=== PATIENT | male | born 1990 | race Native Hawaiian/Other Pacific Islander ===

== ENCOUNTER 2019-04-10 23:05 | Inpatient (IN) | payer MEDICAID, OTHER ==
[2019-04-11 01:59] LABS: Appearance,Urine Clear (Clear); Bilirubin,Urine Negative (Negative); Blood,Urine Negative (Negative); Color,Urine Light Yellow; Glucose,Urine (UA) Negative (Negative); Ketones,Urine Negative (Negative); Leukocyte Esterase,Urine Trace (Negative); Nitrite,Urine Negative (Negative); Protein,Urine Negative (Negative); RBC,Urine 1 /hpf (0-5); Specific Gravity,Urine 1.005 (1.001-1.035); Urobilinogen,Urine <2.0 mg/dL (<2.0); WBC,Urine 3 /hpf (0-5)
[2019-04-11 02:10] LABS: Amphetamine Screen,Urine Not Detected (NotDetected); Barbiturate Screen,Urine Not Detected (NotDetected); Benzodiazepines Screen,Urine Not Detected (NotDetected); Cocaine Screen,Urine Not Detected (NotDetected); Methadone Screen, Urine Not Detected (NotDetected); Opiate Screen,Urine Not Detected (NotDetected); Oxycodone Screen, Urine Not Detected (NotDetected); Phencyclidine Screen,Urine Not Detected (NotDetected); Tricyclic Antidepressant,Urine Not Detected (NotDetected); Urn Cannabinoid Scrn Detected (NotDetected)
--- NOTE | 2019-04-11 02:53 | ED ---
Psych HPI - General Chief Complaint: Psychiatric Symptoms Stated Complaint: Suicidal Ideation Time Seen by Provider: 04/10/19 23:15 Source: patient, police Mode of arrival: ambulatory - History of Present Illness Initial Comments: The patient is a 20-year-old male with past history of depression who presents to the emergency room with reported suicidal ideations. The patient does not provide much history. He is very reluctant to talk. The report from police and EMS is that the patient called his mother stating that he wanted to . He was at locating his belongings to his children. Mother got concerned and called EMS. Patient denies all of this to me. He states that he told his mother "bye" because he did not want to see her anymore. Patient will not elaborate further on this. He states that he was not saying it because he suicidal. Denies homicidal ideations. No hallucinations. Does admit to history of depression in the past. Has been previously hospitalized for mental health. Also reports that he seen a psychiatrist, last of which was 4 months ago. He is not currently on any medications. Patient reports to drinking a small amount of alcohol tonight. He also admits that he takes prescription pain medications that are not prescribed to him. Denies attempting anything to harm himself tonight. Denies any additional symptoms to include headaches, fevers, chills, nausea or vomiting. There are no other alleviating, precipitating or modifying factors - Related Data Previous Rx's Medication Instructions Recorded DULoxetine HCL [Cymbalta] 60 mg PO DAILY #30 capsule. 04/14/19 Allergies Allergy/AdvReac Type Severity Reaction Status Date / Time ibuprofen AdvReac Nausea & Verified 04/10/19 23:22 Vomiting Review of Systems ROS Statement: Those systems with pertinent positive or pertinent negative responses have been documented in the HPI. ROS Other: All systems not noted in ROS Statement are negative. Past Medical History Additional Past Medical History / Comment(s): back pain History of Any Multi-Drug Resistant Organisms: None Reported Past Surgical History: Hernia Repair, Orthopedic Surgery Past Psychological History: Depression Smoking Status: Current every day smoker Past Alcohol Use History: Occasional Past Drug Use History: Prescription Drug Abuse General Exam Limitations: no limitations General appearance: alert, in no apparent distress Head exam: Present: atraumatic, normocephalic, normal inspection Eye exam: Present: normal appearance, PERRL, EOMI. Absent: scleral icterus, conjunctival injection, periorbital swelling ENT exam: Present: normal exam, mucous membranes moist Neck exam: Present: normal inspection. Absent: tenderness, meningismus, lymphadenopathy Respiratory exam: Present: normal lung sounds bilaterally. Absent: respiratory distress, wheezes, rales, rhonchi, stridor Cardiovascular Exam: Present: regular rate, normal rhythm, normal heart sounds. Absent: systolic murmur, diastolic murmur, rubs, gallop, clicks GI/Abdominal exam: Present: soft, normal bowel sounds. Absent: distended, tenderness, guarding, rebound, rigid Extremities exam: Present: normal inspection, full ROM, normal capillary refill. Absent: tenderness, pedal edema, joint swelling, calf tenderness Back exam: Present: normal inspection Neurological exam: Present: alert, oriented X3, CN II-XII intact Psychiatric exam: Present: normal affect, depressed Skin exam: Present: warm, dry, intact, normal color. Absent: rash Course Vital Signs 04/10/19 04/11/19 23:12 04:26 Temperature 98.5 F 98.3 F Pulse Rate 94 53 L Respiratory 18 14 Rate Blood Pressure 149/90 98/52 O2 Sat by Pulse 97 94 L Oximetry Medical Decision Making - Medical Decision Making Upon arrival the patient was placed in room 13. A thorough and physical exam was performed. The patient is petitioned by police. He is currently intoxicated with a BAT of 0.91. He does sober up for an hour. He is on evaluated by the EPS. I'm currently awaiting the recommendations - Lab Data Result diagrams: 04/11/19 08:38 04/11/19 08:38 Lab Results 04/11/19 Range/Units 01:30 Urine Color Light Yellow Urine Appearance Clear (Clear) Urine pH 6.0 (5.0-8.0) Ur Specific [place] 1.005 (1.001-1.035) Urine Protein Negative (Negative) Urine Glucose (UA) Negative (Negative) Urine Ketones Negative (Negative) Urine Blood Negative (Negative) Urine Nitrite Negative (Negative) Urine Bilirubin Negative (Negative) Urine Urobilinogen <2.0 (<2.0) mg/dL Ur Leukocyte Esterase Trace H (Negative) Urine RBC 1 (0-5) /hpf Urine WBC 3 (0-5) /hpf Urine Opiates Screen Not Detected (NotDetected) Ur Oxycodone Screen Not Detected (NotDetected) Urine Methadone Screen Not Detected (NotDetected) Ur Propoxyphene Screen Not Detected (NotDetected) Ur Barbiturates Screen Not Detected (NotDetected) U Tricyclic Antidepress Not Detected (NotDetected) Ur Phencyclidine Scrn Not Detected (NotDetected) Ur Amphetamines Screen Not Detected (NotDetected) U Methamphetamines Scrn Not Detected (NotDetected) U Benzodiazepines Scrn Not Detected (NotDetected) Urine Cocaine Screen Not Detected (NotDetected) U Marijuana (THC) Screen Detected H (NotDetected) Disposition Clinical Impression: Depression Disposition: ADMITTED IP TO THIS [facility] Condition: Stable Is patient prescribed a controlled substance at d/c from ED?: No Decision to Admit Reason: Admit from EC
[2019-04-11] MEDS ORDERED: LORazepam 1 MG TAB PO PRN (04:22)
[2019-04-11] MEDS ORDERED: MAGNESIUM HYDROXIDE 2,400 MG/10 ML CUP PO PRN (04:22)
[2019-04-11] MEDS ORDERED: ZIPRASIDONE 20 MG VIAL IM PRN (04:22)
[2019-04-11] MEDS ORDERED: MAG HYDROX/AL HYDROX/SIMETH 30 ML CUP PO PRN (04:22)
[2019-04-11 09:40] LABS: Basophils # (A) 0.1 k/uL (0-0.2); Basophils % (A) 1 %; Eosinophils # (A) 0.2 k/uL (0-0.7); Eosinophils % (A) 3 %; HCT 43.5 % (39.0-53.0); HGB 14.8 gm/dL (13.0-17.5); Lymphocytes # (A) 2.2 k/uL (1.0-4.8); Lymphocytes % (A) 32 %; MCH 31.2 pg (25.0-35.0); MCV 91.8 fL (80.0-100.0); Monocytes # (A) 0.4 k/uL (0-1.0); Monocytes % (A) 5 %; Neutrophils # (A) 3.9 k/uL (1.3-7.7); Neutrophils % (A) 57 %; Platelet Count 256 k/uL (150-450); RBC 4.74 m/uL (4.30-5.90); WBC 6.8 k/uL (3.8-10.6)
[2019-04-11 09:53] LABS: ALT 16 U/L (4-49); AST 35 U/L (17-59); African American GFR (CKD) >90 (>60 ml/min/1.73 sqM); Albumin 4.3 g/dL (3.5-5.0); Alkaline Phosphatase 63 U/L (38-126); Anion Gap 9 mmol/L; Bilirubin, Delta 0.2 mg/dL (0.0-0.2); Bilirubin,Unconjugated 1.1 mg/dL (0.0-1.1); Blood Urea Nitrogen 11 mg/dL (9-20); Calcium 9.4 mg/dL (8.4-10.2); Carbon Dioxide 24 mmol/L (22-30); Chloride 106 mmol/L (98-107); Cholesterol 143 mg/dL (<200); Glucose 72 mg/dL (74-99); HDL Cholesterol 41 mg/dL (40-60); LDL Cholesterol,Calculated 87 mg/dL (0-99); Non-African American GFR(CKD) >90 (>60 ml/min/1.73 sqM); Potassium 4.2 mmol/L (3.5-5.1); Sodium 139 mmol/L (137-145); Total Bilirubin 1.3 mg/dL (0.2-1.3); Total Protein 7.1 g/dL (6.3-8.2); Triglycerides 76 mg/dL (<150)
[2019-04-11] MEDS ORDERED: ONDANSETRON 4 MG TAB PO PRN (10:44)
[2019-04-11] MEDS ORDERED: LOPERAMIDE 2 MG CAP PO PRN (10:44)
--- NOTE | 2019-04-11 10:57 | P.HP ---
Psychiatric H&P - . History & Physical: Allergies Allergy/AdvReac Type Severity Reaction Status Date / Time ibuprofen AdvReac Nausea & Verified 04/10/19 23:22 Vomiting Vital Signs Temp 97.7 F 04/11/19 05:07 Pulse 85 04/11/19 05:07 Resp 18 04/11/19 05:07 BP 132/65 04/11/19 05:07 Pulse Ox 96 04/11/19 05:07 Intake & Output 04/10/19 04/11/19 04/11/19 18:59 06:59 18:59 Weight 68.039 kg Laboratory Last Values WBC 6.8 k/uL (3.8-10.6) 04/11/19 08:38 RBC 4.74 m/uL (4.30-5.90) 04/11/19 08:38 Hgb 14.8 gm/dL (13.0-17.5) 04/11/19 08:38 Hct 43.5 % (39.0-53.0) 04/11/19 08:38 MCV 91.8 fL (80.0-100.0) 04/11/19 08:38 MCH 31.2 pg (25.0-35.0) 04/11/19 08:38 MCHC 34.0 g/dL (31.0-37.0) 04/11/19 08:38 RDW 13.0 % (11.5-15.5) 04/11/19 08:38 Plt Count 256 k/uL (150-450) 04/11/19 08:38 Neutrophils % 57 % 04/11/19 08:38 Lymphocytes % 32 % 04/11/19 08:38 Monocytes % 5 % 04/11/19 08:38 Eosinophils % 3 % 04/11/19 08:38 Basophils % 1 % 04/11/19 08:38 Neutrophils # 3.9 k/uL (1.3-7.7) 04/11/19 08:38 Lymphocytes # 2.2 k/uL (1.0-4.8) 04/11/19 08:38 Monocytes # 0.4 k/uL (0-1.0) 04/11/19 08:38 Eosinophils # 0.2 k/uL (0-0.7) 04/11/19 08:38 Basophils # 0.1 k/uL (0-0.2) 04/11/19 08:38 Sodium 139 mmol/L (137-145) 04/11/19 08:38 Potassium 4.2 mmol/L (3.5-5.1) 04/11/19 08:38 Chloride 106 mmol/L (98-107) 04/11/19 08:38 Carbon Dioxide 24 mmol/L (22-30) 04/11/19 08:38 Anion Gap 9 mmol/L 04/11/19 08:38 BUN 11 mg/dL (9-20) 04/11/19 08:38 Creatinine 0.72 mg/dL (0.66-1.25) 04/11/19 08:38 Est GFR (CKD-EPI)AfAm >90 (>60 ml/min/1.73 sqM) 04/11/19 08:38 Est GFR (CKD-EPI)NonAf >90 (>60 ml/min/1.73 sqM) 04/11/19 08:38 Glucose 72 mg/dL (74-99) L 04/11/19 08:38 Calcium 9.4 mg/dL (8.4-10.2) 04/11/19 08:38 Total Bilirubin 1.3 mg/dL (0.2-1.3) 04/11/19 08:38 Conjugated Bilirubin 0.0 mg/dL (0.0-0.3) 04/11/19 08:38 Unconjugated Bilirubin 1.1 mg/dL (0.0-1.1) 04/11/19 08:38 Delta Bilirubin 0.2 mg/dL (0.0-0.2) 04/11/19 08:38 AST 35 U/L (17-59) 04/11/19 08:38 ALT 16 U/L (4-49) 04/11/19 08:38 Alkaline Phosphatase 63 U/L (38-126) 04/11/19 08:38 Total Protein 7.1 g/dL (6.3-8.2) 04/11/19 08:38 Albumin 4.3 g/dL (3.5-5.0) 04/11/19 08:38 Triglycerides 76 mg/dL (<150) 04/11/19 08:38 Cholesterol 143 mg/dL (<200) 04/11/19 08:38 LDL Cholesterol, Calc 87 mg/dL (0-99) 04/11/19 08:38 HDL Cholesterol 41 mg/dL (40-60) 04/11/19 08:38 TSH 1.200 mIU/L (0.465-4.680) 04/11/19 08:38 Urine Color Light Yellow 04/11/19 01:30 Urine Appearance Clear (Clear) 04/11/19 01:30 Urine pH 6.0 (5.0-8.0) 04/11/19 01:30 Ur Specific [place] 1.005 (1.001-1.035) 04/11/19 01:30 Urine Protein Negative (Negative) 04/11/19 01:30 Urine Glucose (UA) Negative (Negative) 04/11/19 01:30 Urine Ketones Negative (Negative) 04/11/19 01:30 Urine Blood Negative (Negative) 04/11/19 01:30 Urine Nitrite Negative (Negative) 04/11/19 01:30 Urine Bilirubin Negative (Negative) 04/11/19 01:30 Urine Urobilinogen <2.0 mg/dL (<2.0) 04/11/19 01:30 Ur Leukocyte Esterase Trace (Negative) H 04/11/19 01:30 Urine RBC 1 /hpf (0-5) 04/11/19 01:30 Urine WBC 3 /hpf (0-5) 04/11/19 01:30 Urine Opiates Screen Not Detected (NotDetected) 04/11/19 01:30 Ur Oxycodone Screen Not Detected (NotDetected) 04/11/19 01:30 Urine Methadone Screen Not Detected (NotDetected) 04/11/19 01:30 Ur Propoxyphene Screen Not Detected (NotDetected) 04/11/19 01:30 Ur Barbiturates Screen Not Detected (NotDetected) 04/11/19 01:30 U Tricyclic Antidepress Not Detected (NotDetected) 04/11/19 01:30 Ur Phencyclidine Scrn Not Detected (NotDetected) 04/11/19 01:30 Ur Amphetamines Screen Not Detected (NotDetected) 04/11/19 01:30 U Methamphetamines Scrn Not Detected (NotDetected) 04/11/19 01:30 U Benzodiazepines Scrn Not Detected (NotDetected) 04/11/19 01:30 Urine Cocaine Screen Not Detected (NotDetected) 04/11/19 01:30 U Marijuana (THC) Screen Detected (NotDetected) H 04/11/19 01:30 04/11/19 10:45 IDENTIFYING DATA: This patient is a 28-year-old single male who was admitted to the mental health unit through the emergency room due to suicidal ideation. HPI: The patient presents with a petition completed by his mother indicating that he had been sending text messages stating "goodbye" alluding to suicidal ideation. It further states that he had sent similar messages to his girlfriend and similar postings on Facebook. The patient states that he did feel overwhelmed and hopeless at the time. He indicates that his girlfriend has just told them that they are breaking up. He has been overwhelmed financially and they just had to relocate their home. He has a total of 4 children and in the recent past the 2 oldest children were placed back with their mother where as before he was providing care for them 7 days a week. He describes being impacted by chronic pain of his lower neck. He reports that his sleep has been impaired appetite is been decreased energy level fluctuating he states his mind is scattered his concentration is poor. Here in the hospital he reports no suicidal ideation but he was experiencing those just prior to this admission no homicidal ideation reported. He endorses no auditory or visual hallucinations or any specific delusions. He states he was diagnosed with bipolar disorder at age 15 but he endorses no history of hypomanic or manic episodes. He indicates that he can get angry often but he feels that there is been appropriate precipitant. He denies having any firearms at home. PAST PSYCHIATRIC HISTORY: He indicates he has had 7 prior admissions to psychiatric units the last was in 2006 he initially stated he had no suicide attempts but several years ago he did overdose with Xanax while using alcohol. No other self-injurious behavior. He currently does not attend outpatient mental healthcare. He has gone to [facility] in the past. In the past he has been placed on Ritalin Concerta Prozac Risperdal Abilify Wellbutrin and Seroquel Depakote Celexa. Many of these medications were given to him as a child. He has been off his psychotropic medications for 10 years. PMH: Chronic pain involving his neck he reports pain in his elbow related to a more recent injury. ALLERGIES: Ibuprofen MEDICATIONS: None prescribed CHEMICAL DEPENDENCY HISTORY: The patient reports he has a history of using alcohol heavily 10 years ago he would drink 1/2 gallon per day he reports over the last several years he has not been engaged in alcohol use although 2 days ago he relapsed and drank a pint, he indicates he uses marijuana on a daily basis, he has been getting pain medications off the street most commonly Suboxone sometimes OxyContin. He denies any use of other illicit drugs or other prescription drugs but asks that Adderall be prescribed today. He has never been placed in residential treatment for chemical dependency reasons. FAMILY PSYCHIATRIC HISTORY: None reported, no suicides in the family FAMILY CHEMICAL DEPENDENCY HISTORY: Suspects his dad overused alcohol SOCIAL HISTORY: The patient is 20 years old she single he has 4 children ages 2 months, 1-year-old, 5 years old, 9 years old. The oldest 2 children live with their mother the youngest 2 are with him and his girlfriend up until this most recent breakup. The patient is unemployed he is on disability for "bipolar disorder". He went as far as 10th grade in school and later earned a GED no history of service, he has 1 brother 1 sister. He has been with his girlfriend for 3 years and indicates that the relationship has been up and down. He is originally from the [facility]. His father was killed in a motorcycle accident when the patient was 6 months old he was raised by his mother and a grandmother. Legal history includes 5 domestic violence charges and assault charge he states his longest incarceration was for months and was a felony. He reports no abuse history. MENTAL STATUS EXAM: The patient is a 28-year-old male appearing his stated age he is dressed in hospital attire he is wearing a blanket over top. Eye contact is intermittent. Soon after discussing his presenting symptoms he becomes tearful. He endorses a sad mood he admits that he felt hopeless and had suicidal thoughts at the time he sent those messages. Today he states he feels "fine" and indicates he would like to be discharged. He reports no suicidal ideation intent or plan today he reports no homicidal ideation intent or plan. During conversation he is blunts he is mildly agitated at times but is redirectable. He endorses no auditory or visual hallucinations or any specific delusions. There is no observed evidence of psychosis. He demonstrates no tangential thinking loose associations or flight of ideas. He does seem mildly hyperactive in general. He is demanding at times but again is redirectable. He left the session wants to go vomit due to presumed opiate withdrawal and then he returned on his own accord. Insight and judgment are limited. He demonstrated no aggressiveness he demonstrates no involuntary repetitive movements. He is oriented to person place and date he is able to name the days of the week backwards. STRENGTHS/WEAKNESSES: Strengths: Disability income, housing weaknesses: Untreated mental illness symptoms, substance use, recent breakup with girlfriend INTELLECTUAL FUNCTIONING: Below average to average IMPRESSIONS: [] 1. Major depressive disorder recurrent severe without psychosis, rule out intermittent explosive disorder, rule out bipolar depression, rule out ADHD, alcohol use disorder, rule out opioid use disorder, cannabis use disorder PLAN: He shouldn't was admitted to the mental health unit with a petition and clinical certificate. He indicates he will sign in voluntarily. We reviewed his presenting symptoms and treatment options. Based on this evaluation there is no clear indication he has bipolar disorder. We will proceed with using Cymbalta as an antidepressant that may also address his physical pain complaints. We discussed the potential benefits and side effects of Cymbalta and his questions were answered. He will be seen by internal medicine for routine history and physical exam. Social work will evaluate him to complete a psychosocial assessment. We will begin discharge planning. We will discuss the option of inpatient chemical dependency treatment. He is encouraged to attend groups we will monitor him for safety. We will involve family in treatment and discharge planning as he will allow.
--- NOTE | 2019-04-11 13:12 | P.MDCNMH ---
History of Present Illness Chief Complaint: Suicidal ideation This is a 28-year-old male who is being admitted to mental health unit for suicidal ideation. He's been having some difficult situation home and his depression has worsened and he made some suicidal statements to his mother and his girlfriend. Patient states that he's been diagnosed with bipolar disorder many years ago and been treated with various medications and admissions to [facility] in the past. He denies any medical problems like respiratory illnesses, cardiovascular diseases, diabetes or thyroid disorders. He does not take any medications or regular basis. He states that in the past he was having neck pain and arm pain after injury and would been taking some opiate-based pain medications from the streets. His urine drug screen is negative for opiates. Patient states that in the past he used to be a heavy drinker but for the last few years he has not used any alcohol. He smoked marijuana almost daily. Denies any history of sexually transmitted diseases. He currently denies any shortness of breath, nausea vomiting headache chest pain back pain dysuria. Review of Systems Review of systems performed is negative except mentioned in HPI Past Medical History Past Medical History: No Reported History Additional Past Medical History / Comment(s): back pain History of Any Multi-Drug Resistant Organisms: None Reported Past Surgical History: Hernia Repair, Orthopedic Surgery Past Psychological History: Depression Smoking Status: Current every day smoker Past Alcohol Use History: Occasional Past Drug Use History: Prescription Drug Abuse Medications and Allergies Allergies Allergy/AdvReac Type Severity Reaction Status Date / Time ibuprofen AdvReac Nausea & Verified 04/10/19 23:22 Vomiting Physical Exam Vitals: Vital Signs Temp Pulse Pulse Pulse Resp BP BP 04/11/19 11:52 98.4 F 95 20 04/11/19 05:07 97.7 F 85 18 132/65 04/11/19 04:26 98.3 F 53 L 14 98/52 04/10/19 23:12 98.5 F 94 18 149/90 BP Pulse Ox 04/11/19 11:52 104/69 97 04/11/19 05:07 96 04/11/19 04:26 94 L 04/10/19 23:12 97 Intake and Output 04/10/19 04/11/19 04/11/19 22:59 06:59 14:59 Other: Weight 68.039 kg Vital Signs: I have reviewed the vital signs. GENERAL: Well-nourished, Well-developed , no apparent distress, cooperative Eyes: PERRL, extraoculry movements intact, clear conjunctiva Head: : Atraumatic external nose and ears, oropharyngeal mucosa is moist without lesions or exudates Neck: Symmetric, trachea midline, No thyromegaly, no masses or neck vain pulsation, no neck rigidity CVS: +S1/S2, No murmurs or gallops. Peripheral pulses 2+ and equal in all extremities. RESP: Unlabored respiratory effort. Clear to auscultation bilaterally. Abdomen: Bowel sounds present in all 4 quadrants, Soft to palpation, Nontender/Nondistended, No hepatosplenomegaly, no hernias or masses, no CVA tnderness Musculoskeletal: Extremities w/o deformity, No cyanosis or clubbing, no joint swelling Skin: Warm, Dry. No rashes or lesions Neuro: athletic agent II-XII grossly intact, motor strenght 5/5 i upper and lower extremities, no clonus, patellar DTRs 2+ and sympetrical Psych: Awake, Alert, & Oriented (AAO) x3 Appropriate mood and affect Cranial Nerve Examination - Cranial Nerves Cranial Nerve I- Olfactory: Intact Cranial Nerve II- Optic: Intact Cranial Nerve III- Oculomotor: Intact Cranial Nerve IV- Trochlear: Intact Cranial Nerve V- Trigeminal: Intact Cranial Nerve - Abducens: Intact Cranial Nerve VII- Facial: Intact (Intact) Cranial Nerve VIII- Auditory: Intact Cranial Nerve IX- Glossopharyngeal: Intact Cranial Nerve X- Vagus: Intact Cranial Nerve XI- Accessory: Intact Cranial Nerve XII- Hypoglossal: Intact Results CBC & Chem 7: 04/11/19 08:38 04/11/19 08:38 Labs: Abnormal Lab Results - Last 24 Hours (Table) 04/11/19 04/11/19 Range/Units 01:30 08:38 Glucose 72 L (74-99) mg/dL Ur Leukocyte Esterase Trace H (Negative) U Marijuana (THC) Screen Detected H (NotDetected) Assessment and Plan Assessment: 28-year-old male with history of depression being admitted for worsening of his depression and suicidal ideation. He does not have any active medical problems otherwise. We will check his A1c, TSH and lipid panel along with a CBC and BMP. He denies any drinking. States that he uses some pain medications at home off the street. He denies any significant back pain and rectal Urine toxin is negative for opiates and maps reviewed does not show any controlled substance prescriptions.
[2019-04-11 20:48] LABS: Hemoglobin A1C 4.3 % (4.0-6.0)
[2019-04-12] MEDS: DULoxetine HCL 30 MG CAPSULE.DR PO SCH (08:21)
--- NOTE | 2019-04-12 11:09 | P.PN ---
Progress Note - Text Interval history: The patient's found in group he follows me to an interview room. He indicates his mood is better today. He states it's been helpful for him to be out of his situation so he can think. He was able to sleep last night appetite is stable. He did have a conversation via phone with his girlfriend. She is trying to locate an apartment for them to move into. He states he has been overwhelmed with all the responsibilities with trying to maintain their home they are residing in now. He discusses frustrations at home in terms of the relationship with his girlfriend and all of the responsibilities that they have undertaken. He has no questions or concerns regarding the medication. Mental status exam: The patient is alert he is dressed in his own clothing hygiene grooming adequate. Eye contact is appropriate. He indicates he's feels better today. His affect is less irritable. He remains fairly direct in speech and can be blunt at times. He feels safe in the hospital in terms of suicidal thoughts. He reports no homicidal ideation intent or plan. There is no report or evidence of psychosis he does not appear hypomanic or manic. Insight and judgment limited. He remains oriented to person place and date. He finds that he still is irritable at times but is controlling his behavior. Plan: The patient will continue on the Cymbalta we will plan to titrate that further during this hospitalization. He is encouraged to fully participate in the milieu vital signs reviewed. If he continues to clinic restabilize I anticipate discharging him this week.
[2019-04-13] MEDS: ACETAMINOPHEN TAB 325 MG TAB PO PRN (08:02)
[2019-04-13] MEDS: DULoxetine HCL 30 MG CAPSULE.DR PO SCH (08:02)
--- NOTE | 2019-04-13 11:37 | P.PN ---
Progress Note - Text Interval history: The patient is found in group he follows me to an interview room. He indicates his mood is improving. He feels that he may need to separate from his girlfriend and establish his own residence. He states he can stay with his mother upon discharge. We reviewed his psychotropic medication as questions were answered. Appetite is stable he sleeping at night he is attending groups. He does not wish to attend inpatient chemical dependency treatment at this time. He spends most of the session discussing his relation ship with his girlfriend and he feels they each need to stabilize separately before they come together again. Mental status exam: The patient is alert he is dressed in his own clothing hygiene grooming adequate he's pleasant cooperative and easily directed. He reports feeling more hopeful. He is reporting no acute suicidal ideation intent or plan. He is reporting no homicidal ideation intent or plan. He endorses no auditory or visual hallucinations or specific delusions. Her his no observed evidence of psychosis. Thought process is linear he demonstrates no tangential thinking loose associations or flight of ideas. He does not appear to be hypomanic or manic. Insight and judgment improving. He remains oriented to person place and date. Plan: The patient will continue on the Cymbalta we will titrate the dose to 60 mg daily. I expect he will be appropriate for discharge tomorrow if he demonstrates continued stability/clinical improvement. We will arrange a support meeting prior to discharge. Vital signs reviewed. He is encouraged to continue participating in the milieu.
[2019-04-14 07:10] VITALS: BP 143/66; PULSE 82; RESP 18; TEMP 97.8
[2019-04-14] MEDS: ACETAMINOPHEN TAB 325 MG TAB PO PRN (08:06)
[2019-04-14] MEDS ORDERED: DULoxetine HCL 60 MG CAPSULE.DR PO SCH (09:00)
--- NOTE | 2019-04-14 09:25 | P.DS ---
Providers Date of admission: 04/11/19 04:18 Expected date of discharge: 04/14/19 Attending physician: Sami Feliciano Consults: 04/11/19 04:22 Consult Physician Routine Consulting Provider: Mary Kate Bee Consult Reason/Comments: new admission, H&P Do you want consulting provider notified?: Yes, Notify in am Primary care physician: Stated None - Discharge Diagnosis(es) (1) Major depressive disorder, recurrent severe without psychotic features Current Visit: Yes Status: Acute Priority: High (2) Alcohol use disorder Current Visit: Yes Status: Acute Priority: Medium (3) Cannabis use disorder, mild, abuse Current Visit: Yes Status: Acute Priority: Low Hospital Course: Brief summary of admission note: This patient is a 28-year-old single male who was admitted to the mental health unit through the emergency room for suicidal ideation. It was noted on the petition that the patient had sent text messages stating "goodbye" referring to suicidal ideation. He sent the messages to his mother and his girlfriend as well as posting on Facebook. He states that he felt hopeless and overwhelmed at the time. His girlfriend had threatened to break up with him. He was feeling stressed financially and they had just relocated. He indicated that he had not been on any psychotropic medication for numerous years. For full details please refer to my psychiatric evaluation dated 04/11/2019. Summary of hospital course: The patient was admitted to the mental health unit voluntarily. We reviewed his presenting symptoms and treatment options. We decided to initiate Cymbalta for depressive and anxiety symptoms as well as chronic pain. We titrated the dose to 60 mg daily. He reported no side effects of the medication and continues to tolerate it well. He attended group. He is demonstrated no agitated behavior. He was seen by internal medicine for routine history and physical exam. Social work has met with the patient to complete a psychosocial assessment and begin discharge planning. He has noted a resolution of any suicidal ideation. He has been speaking with his mother and is decided that he will reside with her temporarily and then plans to live independently from his girlfriend and children. He is not interested in inpatient chemical dependency treatment. He is willing to follow up with [facility] for outpatient mental healthcare however. Mental status exam: The patient is alert he is a thin male appearing his stated age. He is dressed in his own clothing hygiene grooming are adequate. He is pleasant cooperative and easily directed. He denies having any hopeless thoughts at this time he denies having any suicidal ideation intent or plan. He reports no homicidal ideation intent or plan. He endorses no auditory or visual hallucinations or any specific delusions. There is no observed evidence of psychosis. He demonstrates no tangential thinking loose associations or flight of ideas. He does not appear hypomanic or manic. Insight and judgment have improved. He demonstrates no verbal or physical aggressiveness he demonstrates no involuntary repetitive movements. He readily describes future oriented thinking in terms of obtaining a new residence continuing to work etc. He remains oriented to person place and date. Impressions 1. Major depressive disorder recurrent severe without psychosis, rule out intermittent explosive disorder, rule out bipolar depression, rule out ADHD, a lcohol use disorder severe partial remission, rule out opioid use disorder, cannabis use disorder moderate Plan: The patient will be discharged today from the mental health unit he plans to reside with his mother temporarily and then obtained his own apartment. He will continue on Cymbalta 60 mg daily. He is encouraged to abstain from any use of alcohol marijuana or illicit drugs as these will precipitate mood symptoms and elevate his safety risk. He does not wish to participate in inpatient chemical dependency treatment at this time. He does not wish to have any other medication prescribed him at this time for substance use. He will follow up with [facility] for outpatient mental health services. At this time there is no imminent safety risk is appropriate for transition outpatient care. He is instructed to return to the emergency room with any acute safety concerns. Patient Condition at Discharge: Stable Plan - Discharge Summary Discharge Rx Participant: No New Discharge Prescriptions: New DULoxetine HCL [Cymbalta] 60 mg PO DAILY #30 capsule. Discharge Medication List DULoxetine HCL [Cymbalta] 60 mg PO DAILY #30 capsule. 04/14/19 [Rx] Follow up Appointment(s)/Referral(s): [facility] [Outside] - 04/20/19 1:00 pm (Appointment with Emma 04/20/19 at 1 pm) [facility] - 1 Week Activity/Diet/Wound Care/Special Instructions: Activity and diet as tolerated. Avoid the use of street drugs and alcohol. Take all medications as prescribed. When you are in need of refills on your medications please contact your medical provider and/or outpatient psychiatrist to have this done. Please go to scheduled outpatient appointment for aftercare treatment. If symptoms return or become worse, call the crisis line at and/or go to the nearest emergency room for evaluation.
== END 2019-04-14 11:57 | disposition home or self-care (01) | DRG 885 ==
LOC: EC 23:05 → 3MHU 04-11 04:18
PROVIDERS: ADMIT Psychiatry & Neurology Psychiatry; ATTEND Psychiatry & Neurology Psychiatry
DX: F33.2 Major depressive disorder, recurrent severe without psychotic features (principal); R45.851 Suicidal ideations; F12.10 Cannabis abuse, uncomplicated; F10.129 Alcohol abuse with intoxication, unspecified; G89.29 Other chronic pain; M54.9 Dorsalgia, unspecified; F17.210 Nicotine dependence, cigarettes, uncomplicated; Z71.6 Tobacco abuse counseling; Z91.5 Personal history of self-harm; Z98.890 Other specified postprocedural states; Z88.6 Allergy status to analgesic agent
CPT/HCPCS: 80053; 80061; 80306; 81001; 82075; 82248; 83036; 84443; 85025; 99285

== ENCOUNTER → 2020-11-05 | Outpatient (CLI) | payer OTHER ==
--- NOTE | 2020-11-05 10:22 | CT ---
EXAMINATION TYPE: CT brain wo con DATE OF EXAM: 11/05/2020 COMPARISON: None HISTORY: 29-year-old male R51, Headache after head injury TECHNIQUE: Examination was done in axial plane without intravenous contrast. Coronal and sagittal r econstructions performed. CT DLP: 1153 mGycm Automated exposure control for dose reduction was used. FINDINGS: There is no evidence of acute intracranial hemorrhage, acute ischemic changes, mass, mass-effect, or extra-axial fluid collection. There is no effacement of cerebral sulci or basal subarachnoid cister ns. There is no hydrocephalus. There is no midline shift. Ryan-white matter distinction is preserv ed. Moderate to severe mucosal thickening ethmoid air cells and left frontal sinus. Frothy layering fluid within the left maxillary sinus. Moderate mucosal thickening right maxillary sinus and mild within t he remaining paranasal sinuses. Mastoid air cells are well pneumatized. Orbits and globes are intact. No calvarial fracture. IMPRESSION: 1. No acute intracranial abnormality seen. 2. Moderate chronic pansinus disease. Correlate for possible superimposed acute left maxillary sinusi tis.
== END | disposition home or self-care (01) ==
LOC: RADCTMAIN 07:20
PROVIDERS: ATTEND Internal Medicine
DX: G44.309 Post-traumatic headache, unspecified, not intractable (principal); J32.9 Chronic sinusitis, unspecified
CPT/HCPCS: 70450

== ENCOUNTER 2023-01-17 15:26 | Emergency (ER) | payer OTHER ==
[2023-01-17] MEDS ORDERED: DIPH,PERTUS(ACELL)TETVAC-LF 0.5 ML VIAL IM ONE (15:49)
--- NOTE | 2023-01-17 15:58 | ED ---
General Adult HPI - General Chief complaint: Recheck/Abnormal Lab/Rx Stated complaint: hypothermia Time Seen by Provider: 01/17/23 15:30 Source: patient, police, RN notes reviewed Mode of arrival: EMS - History of Present Illness Initial comments: 30-year-old male brought in by police for evaluation after a traffic stop he ran out of his vehicle and jump into a local river. He states he was just try to get away from the police but denies any thoughts of hurting himself. Additionally he states that he get hit by what he believes is to buy for similar to between 10 and 2 PM at work he states he hurt his neck crack he does deny any pain to his head he states he does have a little bit of right-sided neck pain no loss of function is upper or lower extremities no nausea no vomiting no blurry vision no other symptoms or modifying factors he does have an abrasion to his left knee and is unclear as to when. No other current complaints or modifying factors his last tetanus shot he believes is been over 5 years but unclear how many years ago - Related Data Previous Rx's Medication Instructions Recorded DULoxetine HCL [Cymbalta] 60 mg PO DAILY #30 capsule. 04/14/19 Allergies Allergy/AdvReac Type Severity Reaction Status Date / Time ibuprofen AdvReac Nausea & Verified 01/17/23 15:30 Vomiting Review of Systems ROS Statement: Those systems with pertinent positive or pertinent negative responses have been documented in the HPI. ROS Other: All systems not noted in ROS Statement are negative. Past Medical History Past Medical History: No Reported History Additional Past Medical History / Comment(s): back pain History of Any Multi-Drug Resistant Organisms: None Reported Past Surgical History: Hernia Repair, Orthopedic Surgery Past Psychological History: Depression Past Alcohol Use History: Occasional Past Drug Use History: Prescription Drug Abuse General Exam - General Exam Comments Initial Comments: This is a well developed well-nourished awake alert oriented 4 male with a Trinity Coma Scale of 15 General appearance: alert, in no apparent distress Head exam: Present: atraumatic, normocephalic, normal inspection, other (No evidence of any injury to the scalp face years etc.) Eye exam: Present: normal appearance, PERRL, EOMI. Absent: scleral icterus, conjunctival injection, periorbital swelling ENT exam: Present: normal exam, mucous membranes moist Neck exam: Present: normal inspection, tenderness (I'll tenderness to palpation over the right side inferior trapezius musculature no midline tenderness no step-off no crepitation no stridor JVD or bruits), full ROM. Absent: meningismus, lymphadenopathy Respiratory exam: Present: normal lung sounds bilaterally. Absent: respiratory distress, wheezes, rales, rhonchi, stridor Cardiovascular Exam: Present: regular rate, normal rhythm, normal heart sounds. Absent: systolic murmur, diastolic murmur, rubs, gallop, clicks GI/Abdominal exam: Present: soft. Absent: distended, tenderness, guarding, rebound, rigid Rectal exam: Present: deferred Extremities exam: Present: normal inspection (Anterior lateral knee no active bleeding no formed by seen no repair indicated.), full ROM, normal capillary refill. Absent: tenderness, pedal edema, joint swelling, calf tenderness Back exam: Present: normal inspection, full ROM. Absent: tenderness Neurological exam: Present: alert, oriented X3, CN II-XII intact Psychiatric exam: Present: normal affect, normal mood Skin exam: Present: warm, dry, normal color, other (As above). Absent: rash Course Vital Signs 01/17/23 15:28 Temperature 98.2 F Pulse Rate 103 H Respiratory 18 Rate Blood Pressure 127/77 O2 Sat by Pulse 100 Oximetry Medical Decision Making - Medical Decision Making Was pt. sent in by a medical professional or institution ([facility], [facility], urgent care, hospital, or custodial...) When possible be specific @ -[No] Did you speak to anyone other than the patient for history (EMS, parent, family, police, friend...)? What history was obtained from this source @ -[Police] Did you review nursing and triage notes (agree or disagree)? Why? @ -[I reviewed and agree with nursing and triage notes] Were old charts reviewed (outside hosp., previous admission, EMS record, old EKG, old radiological studies, urgent care reports/EKG's, custodial records)? Report findings @ -[No old charts were reviewed] Differential Diagnosis (chest pain, altered mental status, abdominal pain women, abdominal pain men, vaginal bleeding, weakness, fever, dyspnea, syncope, headache, dizziness, GI bleed, back pain, seizure, CVA, palpatations, mental health, musculoskeletal)? @ -[Possible hypothermia, neck pain] EKG interpreted by me (3pts min.). @ -[Not done] X-rays interpreted by me (1pt min.). @ -[None indicated] CT interpreted by me (1pt min.). @ -[None indicated] U/S interpreted by me (1pt. min.). @ -[None done] What testing was considered but not performed or refused? (CT, X-rays, U/S, labs)? Why? @ -[None indicated] What meds were considered but not given or refused? Why? @ -[None] Did you discuss the management of the patient with other professionals (professionals i.e. , PA, [employer], lab, RT, psych nurse, secondary social studies teacher, general road production manager, teacher, chief growth officer, case advocate)? Give summary @ -[No] Was smoking cessation discussed for >3mins.? @ -[No] Was critical care preformed (if so, how long)? @ -[No] Were there social determinants of health that impacted care today? How? (Homelessness, low income, unemployed, alcoholism, drug addiction, transportation, low edu. Level, literacy, decrease access to med. care, shelter, rehab)? @ -[No] Was there de-escalation of care discussed even if they declined (Discuss DNR or withdrawal of care, Hospice)? DNR status @ -[No] What co-morbidities impacted this encounter? (DM, HTN, Smoking, COPD, CAD, Cancer, CVA, ARF, Chemo, Hep., AIDS, mental health diagnosis, sleep apnea, morbid obesity)? @ -[None] Was patient admitted / discharged? Hospital course, mention meds given and route, prescriptions, significant lab abnormalities, going to OR and other pertinent info. @ -[hospital course was discharged after shelter clearance with police officers.] Undiagnosed new problem with uncertain prognosis? @ -[No] Drug Therapy requiring intensive monitoring for toxicity (Heparin, Nitro, Insulin, Cardizem)? @ -[No] Were any procedures done? @ -[No] Diagnosis/symptom? @ -[Trapezius muscle strain, shelter clearance] Acute, or Chronic, or Acute on Chronic? @ -[Acute] Uncomplicated (without systemic symptoms) or Complicated (systemic symptoms)? @ -[default] Side effects of treatment? @ -[No] Exacerbation, Progression, or Severe Exacerbation? @ -[No] Poses a threat to life or bodily function? How? (Chest pain, [place], [place], pneumonia, PE, COPD, DKA, ARF, appy, cholecystitis, CVA, Diverticulitis, Homicidal, Suicidal, threat to staff... and all critical care pts) @ -[No] Disposition Clinical Impression: Trapezius muscle strain, Medical clearance for incarceration Disposition: HOME SELF-CARE Condition: Good Instructions (If sedation given, give patient instructions): Muscle Strain (ED) Is patient prescribed a controlled substance at d/c from ED?: No Referrals: Chapincito Hedrick MD [Primary Care Provider] - 1-2 days Decision Date: 01/17/23 Decision Time: 15:57
[2023-01-17 16:15] VITALS: BP 116/77; PULSE 85; RESP 16; TEMP 97.6
== END 2023-01-17 16:25 | disposition home or self-care (01) ==
LOC: EC 15:26
DX: S29.012A Strain of muscle and tendon of back wall of thorax, initial encounter (principal); Z86.59 Personal history of other mental and behavioral disorders; Z88.6 Allergy status to analgesic agent; Z23 Encounter for immunization; W22.8XXA Striking against or struck by other objects, initial encounter; Y93.39 Activity, other involving climbing, rappelling and jumping off; Y92.410 Unspecified street and highway as the place of occurrence of the external cause
CPT/HCPCS: 90471; 90715; 99284

== ENCOUNTER 2023-07-15 18:30 | Emergency (ER) | payer SELFPAY ==
--- NOTE | 2023-07-15 18:49 | ED ---
Skin/Abscess/FB HPI - General Source: patient, RN notes reviewed Mode of arrival: ambulatory Limitations: no limitations <Lynn Gray - Last Filed: 07/15/23 18:49> <Keo Silva - Last Filed: 07/17/23 04:24> - General Stated complaint: ingrown toenail Time Seen by Provider: 07/15/23 18:49 - History of Present Illness Initial comments: Quick note: 32-year-old male presented to the ER with a chief complaint of left ingrown toenail. He states he recently was incarcerated and has been being treated for athlete's foot. He denies any fevers or chills. (Lynn Gray) 32-year-old male presenting with chief complaint of left ingrown toenail of the big toe. Patient states that over the past few days he has noticed some discharge and crusting over the skin near his ingrown toenail. He is concerned for infection. He has also previously been treated for athlete's foot while incarcerated. No fevers or chills. No red streaking up the leg. No nausea or vomiting. No joint pain or swelling. (Keo Silva) - Related Data Previous Rx's Medication Instructions Recorded DULoxetine HCL [Cymbalta] 60 mg PO DAILY #30 capsule. 04/14/19 Cephalexin [Keflex] 500 mg PO Q8HR 7 Days #21 cap 07/15/23 Clotrimazole [Clotrimazole 1% Top 1 applic TOPICAL BID #30 ml 07/15/23 Soln] Sulfamethox-Tmp 800-160Mg [Bactrim 1 tab PO Q12HR 7 Days #14 tab 07/15/23 DS 800-160 mg] Allergies Allergy/AdvReac Type Severity Reaction Status Date / Time ibuprofen AdvReac Nausea & Verified 01/17/23 15:30 Vomiting Review of Systems ROS Other: All systems not noted in ROS Statement are negative. <Lynn Gray - Last Filed: 07/15/23 18:49> ROS Other: All systems not noted in ROS Statement are negative. <Keo Silva - Last Filed: 07/17/23 04:24> ROS Statement: Those systems with pertinent positive or pertinent negative responses have been documented in the HPI. Past Medical History Past Medical History: No Reported History Additional Past Medical History / Comment(s): back pain History of Any Multi-Drug Resistant Organisms: None Reported Past Surgical History: Hernia Repair, Orthopedic Surgery Past Psychological History: Depression Past Alcohol Use History: Occasional Past Drug Use History: Prescription Drug Abuse <Lynn Gray - Last Filed: 07/15/23 18:49> General Exam <Lynn Gray - Last Filed: 07/15/23 18:49> Limitations: no limitations General appearance: alert, in no apparent distress Head exam: Present: atraumatic, normocephalic Eye exam: Present: normal appearance, EOMI Neck exam: Present: normal inspection Respiratory exam: Absent: respiratory distress Extremities exam: Present: other (There is some erythema near the end of the left big toe) Neurological exam: Present: alert, oriented X3 Psychiatric exam: Present: normal affect, normal mood Skin exam: Present: erythema (Erythema and crusting at the end of the left big toe) <Keo Silva - Last Filed: 07/17/23 04:24> - General Exam Comments Initial Comments: Visual Physical Exam Vital signs reviewed General: Well-appearing, nontoxic, no acute distress. Head: Normocephalic, atraumatic Eyes: PERRLA, EOMI ENT: Airway patent Chest: Nonlabored breathing Skin: No visual rash, normal skin tone Neuro: Alert and oriented 3 Musculoskeletal: No gross abnormalities (Lynn Gray) Course Vital Signs 07/15/23 07/15/23 18:50 20:29 Temperature 98.4 F 98.3 F Pulse Rate 115 H 99 Respiratory 18 18 Rate Blood Pressure 146/87 143/86 O2 Sat by Pulse 96 96 Oximetry Medical Decision Making <Lynn Gray - Last Filed: 07/15/23 18:49> <Keo Silva - Last Filed: 07/17/23 04:24> - Medical Decision Making I performed the quick note portion of this chart. Electronically signed by Lynn Gray PA-C (Lynn Gray) Was pt. sent in by a medical professional or institution ([facility], [facility], urgent care, hospital, or senior living...) When possible be specific @ -No Did you speak to anyone other than the patient for history (EMS, parent, family, police, friend...)? What history was obtained from this source @ -No Did you review nursing and triage notes (agree or disagree)? Why? @ -I reviewed and agree with nursing and triage notes Were old charts reviewed (outside hosp., previous admission, EMS record, old EKG, old radiological studies, urgent care reports/EKG's, senior living records)? Report findings @ -No old charts were reviewed Differential Diagnosis (chest pain, altered mental status, abdominal pain women, abdominal pain men, vaginal bleeding, weakness, fever, dyspnea, syncope, headache, dizziness, GI bleed, back pain, seizure, CVA, palpatations, mental health, musculoskeletal)? @ -Differential includes cellulitis, abscess, osteomyelitis, tinea pedis, this is not an all-inclusive list EKG interpreted by me (3pts min.). @ -As above X-rays interpreted by me (1pt min.). @ -None done CT interpreted by me (1pt min.). @ -None done U/S interpreted by me (1pt. min.). @ -None done What testing was considered but not performed or refused? (CT, X-rays, U/S, labs)? Why? @ -None What meds were considered but not given or refused? Why? @ -None Did you discuss the management of the patient with other professionals (pr ofessionals i.e. , PA, [employer], lab, RT, psych nurse, social sciences research scientist, business control manager, teacher, hazard mitigation officer, rehabilitation case coordinator)? Give summary @ -No Was smoking cessation discussed for >3mins.? @ -No Was critical care preformed (if so, how long)? @ -No Were there social determinants of health that impacted care today? How? (Homelessness, low income, unemployed, alcoholism, drug addiction, transportation, low edu. Level, literacy, decrease access to med. care, long term, rehab)? @ -No Was there de-escalation of care discussed even if they declined (Discuss DNR or withdrawal of care, Hospice)? DNR status @ -No What co-morbidities impacted this encounter? (DM, HTN, Smoking, COPD, CAD, Cancer, CVA, ARF, Chemo, Hep., AIDS, mental health diagnosis, sleep apnea, morbid obesity)? @ -None Was patient admitted / discharged? Hospital course, mention meds given and route, prescriptions, significant lab abnormalities, going to OR and other pertinent info. @ -32-year-old male presenting with chief complaint of left-sided ingrown toenail. On exam here does not appear to be any current ingrown toenail. There is some redness and crusting at the end of the left big toe. Patient will be treated with Keflex and Bactrim. He is also given antifungal cream for his athlete's foot. Discharged home. Follow-up with PCP. Report back to ER with any new or worsening symptoms. Discussed return parameters and answered all questions. Patient conveyed verbal understanding and agreed to the plan. I discussed this case in detail with my attending Dr. Fenton Undiagnosed new problem with uncertain prognosis? @ -No Drug Therapy requiring intensive monitoring for toxicity (Heparin, Nitro, Insulin, Cardizem)? @ -No Were any procedures done? @ -No Diagnosis/symptom? @ -Cellulitis, tinea pedis Acute, or Chronic, or Acute on Chronic? @ -Acute Uncomplicated (without systemic symptoms) or Complicated (systemic symptoms)? @ -Uncomplicated Side effects of treatment? @ -No Exacerbation, Progression, or Severe Exacerbation? @ -No Poses a threat to life or bodily function? How? (Chest pain, [place], [place], pneumonia, PE, COPD, DKA, ARF, appy, cholecystitis, CVA, Diverticulitis, Homicidal, Suicidal, threat to staff... and all critical care pts) @ -No (Keo Silva) Disposition <Lynn Gray - Last Filed: 07/15/23 18:49> Is patient prescribed a controlled substance at d/c from ED?: No Time of Disposition: 20:14 <Keo Silva - Last Filed: 07/17/23 04:24> Clinical Impression: Cellulitis, Tinea pedis Disposition: HOME SELF-CARE Condition: Good Instructions (If sedation given, give patient instructions): Athlete's Foot (ED), Cellulitis (ED) Additional Instructions: Follow-up with PCP and mold filler and drainer. Report back to ER with any new or worsening symptoms. Continue use the topical cream for 1 week after resolution of the symptoms Prescriptions: Sulfamethox-Tmp 800-160Mg [Bactrim DS 800-160 mg] 1 tab PO Q12HR 7 Days #14 tab Clotrimazole [Clotrimazole 1% Top Soln] 1 applic TOPICAL BID #30 ml Cephalexin [Keflex] 500 mg PO Q8HR 7 Days #21 cap Referrals: None,Stated [Primary Care Provider] - 1-2 days Mena Lopez DPM [REFERRING] - 1-2 days
[2023-07-15 19:23] VITALS: RESP 18
[2023-07-15] MEDS: ACETAMINOPHEN TAB 325 MG TAB PO STA (20:23)
[2023-07-15] MEDS: SULFAMETHOX-TMP 800-160MG 1 EACH TAB PO STA (20:24)
[2023-07-15] MEDS: CEPHALEXIN 500 MG CAP PO STA (20:24)
[2023-07-15 20:54] VITALS: BP 143/86; PULSE 99; TEMP 98.3
== END 2023-07-15 20:51 | disposition home or self-care (01) ==
LOC: EC 18:30
DX: B35.3 Tinea pedis (principal); Z88.6 Allergy status to analgesic agent
CPT/HCPCS: 99283